=== PATIENT | female | born 1940 | race Caucasian/White ===

== ENCOUNTER 2020-06-19 18:25 | Emergency (ER) | payer OTHER ==
[~2020-06-19] VITALS: Ht 157.5 cm; Wt 49.9 kg
[2020-06-19 18:25] VITALS: BP 154/68
--- NOTE | 2020-06-19 18:35 | NUR ---
Received care of 80 y/o female pt SHANICEA from home c/o difficulty swallowing, s/p pork chop stuck in throat. Med hx of DM insulin dependent, Allergies to Sulfa & PCN. Pt's SpO2 100% RA.
[2020-06-19] MEDS ORDERED: LIDOCAINE VISCOUS 2% 20 ML UDC PO ONE (18:55)
--- NOTE | 2020-06-19 19:56 | NUR ---
TO BE DISCHARGED. CALLING PTS , NO ANSWER
--- NOTE | 2020-06-19 20:00 | NUR ---
AWAKE ALERT. APPLE JUICE GIVEN. SWALLOWING WITHOUT DIFFICULTY, SPEAKS IN CLEAR SENTENCES.
[2020-06-19 20:15] VITALS: BP 154/68
--- NOTE | 2020-06-19 20:15 | NUR ---
DISCHARGED. AMBULATED TO LOBBY WITH STEADY GAIT.
== END 2020-06-19 20:15 | disposition home or self-care (01) ==
LOC: MED 18:25
DX: R09.89 Other specified symptoms and signs involving the circulatory and respiratory systems (principal); R11.0 Nausea; R07.0 Pain in throat; E11.9 Type 2 diabetes mellitus without complications; Z88.0 Allergy status to penicillin; Z88.2 Allergy status to sulfonamides
CPT/HCPCS: 70360; 71045; 99284